=== PATIENT | female | born 1960 | race Caucasian/White ===

== ENCOUNTER 2023-12-30 16:38 | Emergency (ER) | payer OTHER, SELFPAY ==
[2023-12-30 16:45] VITALS: BP 144/84
[2023-12-30 17:07] LABS: % Basophils 0.6 % (0-2); % Eosinophils 1.1 % (0-6); % Immature Granulocytes 0.3 % (0-0.5); % Lymphocytes 29.7 % (20.5-51.1); % Monocytes 4.7 % (1.7-9.3); % Neutrophils 63.6 % (42.2-75.2); Absolute Basophils 0.1 10^3/uL (0-0.2); Absolute Eosinophils 0.1 10^3/uL (0-0.7); Absolute Monocytes 0.5 10^3/uL (0.1-0.6); Absolute Neutrophils 6.4 10^3/uL (1.4-6.5); Hematocrit 44.4 % (37.0-47.0); Hemoglobin 14.9 g/dL (12.0-16.0); Mean Corp Hgb Conc. 33.6 g/dL (33.0-37.0); Mean Corpuscular Hgb 26.9 pg (27.0-31.0); Mean Corpuscular Volume 80.3 fL (81.0-99.0); Mean Platelet Volume 9.7 fL (7.4-10.4); Nucleated Red Blood Cells % 0 %; Platelet Count 219 10^3/uL (130-400); Red Blood Cell Count 5.53 10^6/uL (4.20-5.40); Red Cell Dist. Width 14.8 % (11.5-14.5)
[2023-12-30 17:19] LABS: ALT (SGPT) 25 U/L (0-35); AST (SGOT) 29 U/L (14-36); Albumin 4.5 g/dl (3.5-5.0); Alkaline Phosphatase 84 U/L (38-126); Blood Urea Nitrogen 17 mg/dl (7-17); Calcium 9.9 mg/dl (8.4-10.2); Carbon Dioxide 21 mmol/L (22-30); Chloride 106 mmol/L (98-107); Glucose 192 mg/dl (70-99); Sodium 134 mmol/L (135-145); Total Bilirubin 0.4 mg/dl (0.2-1.3); Total Protein 7.1 g/dl (6.3-8.2); eGFR > 60.00
[2023-12-30 17:32] LABS: Troponin I < 0.012 ng/ml
--- NOTE | 2023-12-30 18:14 | ED.GENMED ---
History of Present Illness
General
Chief Complaint: Heart Rate Problem
Source: patient
Exam Limitations: none
Time Seen by Provider: 12/30/23 18:01
Travel History
Have you had any contact with someone who has COVID-19?: No
Do you have any symptoms of coronavirus? Fever > 100 degrees, chills, cough, shortness of breath, sore throat, loss of taste or smell, muscle aches, or headache?: No
History of Present Illness
History of Present Illness:
This is a 63 year old female that comes in with c/o atrial fib. States that she has kylie experiencing numbness in her hand, sweating and SOB. States that this started on Tuesday. States that she recently had a sinus infection and did two rounds of
antibiotics. States that she doesn't have chest pain but has pain in the mid back. States that she has a headache and feels dizzy. Denies any fever, chills, chest pain, abd pain, nausea, vomiting, diarrhea, urinary burning.
Past History
Past History
ED Past Medical History: CAD, Cancer (Skin), GERD, HTN, Hypercholesterolemia, NIDDM, [place], Psychiatric (Anxiety), Other (diverticulitis, kidney stone, Numbness in arms and legs. Sleep apnea, ) and Other
ED Past Surgical History: Cardiac (Stent X 1), Gynecological (Ovarian cyst removed), Urological and Other (polyp removed from Throat. )
Social History
Tobacco: Smoker
Alcohol: None
Drug: None
Personal:
Living: with family
Employment: Retired
Family History
Family History: Other (Noncontributory)
Review of Systems
Review of Systems
All Other Systems: ROS reviewed and negative except as documented in HPI and ROS
Constitutional: Reports other (Sweating); Denies fever or chills
EENT: Reports no symptoms
Respiratory: Reports trouble breathing; Denies cough
Cardiac: Denies chest pain
ABD/GI: Reports no symptoms; Denies abdominal pain, nausea, vomiting or diarrhea
: Reports no symptoms; Denies dysuria, frequency or urgency
Musculoskeletal: Reports back pain (Mid upper back pain)
Skin: Reports no symptoms
Neurological: Reports dizzy and headache
Psychiatric: Reports no symptoms
Phy Exam
General Physical Exam
General Presentation: no apparent distress
General age: appears stated age
General Skin: warm and dry
General Habitus: normal
General Mental: alert
General Hydration: dry mucous membranes
ENT Exam
ENT Exam: TM's normal, pharynx normal and neck supple
Eye Exam
Eye Exam: EOMI
Cardiovascular Exam
Cardiovascular Exam: no edema, no murmur, normal peripheral pulses and irregularly irregular
Pulmonary Exam
Pulmonary Exam: lungs clear, no respiratory distress, no rales, chest non tender, no crackles, no rhonchi, no wheezing and no cough
Gastrointestinal Exam
Gastrointestinal Exam: normal bowel sounds, non tender, soft, no organomegaly, no pulsatile mass, non distended and other (obese)
Musculoskeletal Exam
Musculoskeletal Exam: full ROM and no edema
Skin Exam
Skin Exam: normal color, warm/dry, no rash and no petechia
Psychiatric Exam
Psychiatric Exam: normal mood/affect
Scores
[id number] Score for Afib Stroke Risk
Age in Years (65=0, 65-74=1, >/=75=2): <65
Sex (Female=+1): Female
Congestive Heart Failure History (Yes=+1): No
Hypertension History (Yes=+1): Yes
Stroke/TIA/Thromboembolism History (Yes=+2): No
Vascular Disease History (Yes=+1): No
Diabetes Mellitus (Yes=+1): Yes
Score: 3
Anticoagulation Recommendations: Recommend anticoagulation (as validated in nonvalvular fib)
Course
Orders/Labs/Results
Orders:
Orders
12/30/23 16:39
EKG [Electrocardiogram (*1)] Urgent
Reason for Study: Chest Pain
EKG- Treatment ONCE
12/30/23 16:58
Complete Blood Count/With Diff Urgent
Comprehensive Metabolic Panel Urgent
TSH Reflex To Free T4 Urgent
Comment: ADD ON
Troponin I Urgent
12/30/23 18:13
0.9% Sodium Chloride 1000 ml [Nss] 1,000 ml IV BOLUS
Diltiazem 125 mg/125 ml Nss [Cardizem] 125 mg in 125 ml IV NOW
Initial dose in mg/hr, then titrate:: 5
Titrate to keep:: Heart rate 80-100 bpm
Titrate by mg/hr:: 5 mg/hr
Frequency of titrations (minutes):: 15
Maximum dose in mg/hr:: 15
Diltiazem HCl [Cardizem] 10 mg IV NOW STA
12/30/23 18:17
Add On- LAB Urgent
Tests Added?: TSH with reflex free T4
CR Chest - 2 Views Urgent
Comment:
Reason For Exam: SOB
12/30/23 18:18
EKG- Treatment ONCE
12/30/23 19:02
Troponin I Urgent
12/30/23 20:00
Electrocardiogram (*1) Urgent
Reason for Study: Atrial Fibrillation
Other Reason for Exam: Repeat with Troponin
Abnormal Lab Results
12/30/23
16:58
RBC 5.53 H 10^6/uL
(4.20-5.40)
MCV 80.3 L fL
(81.0-99.0)
MCH 26.9 L pg
(27.0-31.0)
RDW 14.8 H %
(11.5-14.5)
Sodium 134 L mmol/L
(135-145)
Carbon Dioxide 21 L mmol/L
(22-30)
Glucose 192 H mg/dl
(70-99)
12/30/23 16:58
12/30/23 16:58
Glucose nonfasting. troponin <0.012
Second Troponin <0.012,
Vital Signs
Initial and Last Documented VS:
Initial Vital Signs
Pulse Resp BP Pulse Ox
126 20 144/84 94
12/30/23 16:45 12/30/23 16:45 12/30/23 16:45 12/30/23 16:45
Last Documented Vital Signs
Pulse Resp BP Pulse Ox
96 15 144/84 96
12/30/23 19:30 12/30/23 19:30 12/30/23 16:45 12/30/23 19:30
MDM/Problems Addressed
Differential Diagnosis Includes:
New Onset atrial fib,
MDM/Problems Addressed:
This is a 63 year old female that comes in with c/o sweating, SOB and back pain. States that this started on Tuesday. State that she feels that she is in atrial fib after using her [employer] apple watch.
Will check labs. Give IV Cardizem to slow her rate, IV fluids and chest x-ray.
repeat ECG: Rate 97, Atrial fib, Normal axis. Right BBB, Negative for ischemia.
Back into see patient. Explained that her rate has improved on the repeat ECG but she was still in atrial fib. However, at this time she is now in NSR. Will get Repeat ECG. Message sent to Dr Teran Will place patient on Cardizem CD 120mg daily
and place on Eliquis 5mg BID. Patient has an appointment on Tuesday with Dr. Wetzel. Will discharge patient home.
Repeat ECG Rate 77, NSR, Normal axis. RBBB, Negative for ischemia. Patient is very happy. Explained that her Second Troponin was also normal and patient denies any further back pain.
Chronic conditions affecting care: DM
Acute Exacerbation and/or Progression of Chronic Illness:
NA
*Radiology
Radiology exam reviewed: radiology read reviewed (Chest- No acute cardiopulmonary process )
*Pulse Oximetry
Patient hypoxic: no
*EKG
Interpreted by ED Provider?: Yes
Interpretation: abnormal
Heart Rate: 134
Rate: tachycardiac
Rhythm: a-fib
[place]: normal axis
QRS Pattern: right bundle branch block
Ischemia: no ischemia (Checked by Dr. Goff)
*Condenser Tube Tender Interpretation
Rate: tachycardiac
Interpretation: abnormal
Heart Rate: 130
Rhythm: a-fib
*Critical Care Note
Total Time (30-74mins, 75-104mins- exclusive of procedures): 60 min
ED Attending Note
-
Portions of this chart may have been created with voice recognition software.� Occasional wrong word or��sound alike� substitutions may have occurred due to the inherent limitations of voice recognition software.
Discharge Plan
Departure
Patient Disposition: Home (Routine Discharge)
Date of Disposition: 12/30/23
Time of Disposition: 20:31
Patient with high blood pressure during this ER visit?: Yes
Condition: Good
Covid-19: Not Applicable
Discharge Problem:
New onset a-fib
Instructions: Atrial Fibrillation (DC), BLOOD PRESSURE
Prescriptions:
New
Eliquis 5 mg tablet
5 mg PO BID Qty: 60 0RF
diltiazem HCl [Cardizem CD] 120 mg capsule,extended release 24hr
120 mg PO DAILY Qty: 30 0RF
No Action
sertraline 100 MG tablet
200 mg PO DAILY 0RF
pantoprazole 40 MG tablet,delayed release (DR/EC)
40 mg PO DAILY Qty: 90 3RF
nitroglycerin 0.4 MG tablet, sublingual
0.4 mg sublingual [id number] PRN (Reason: chest pain) Qty: 25 2RF
aspirin 81 MG tablet,chewable
81 mg PO DAILY 0RF
rosuvastatin 20 MG tablet
20 mg PO QPM Qty: 90 3RF
trazodone 50 MG tablet
50 - 100 mg PO HSPRN PRN (Reason: sleep)
ferrous sulfate [FeroSul] 325 MG tablet
325 mg PO DAILY
losartan 25 MG tablet
25 mg PO DAILY
multivitamin with folic acid [Tab-A-Ameena] 1 TABLET tablet
1 tab PO DAILY
Jardiance 25 mg tablet
25 mg PO HS
Referrals:
Andreea Wetzel MD [Active] - 01/04/24
Amanda Rosenbaum CRNP [Family Provider] -
Activity Restrictions/Additional Instructions:
As discussed, your blood work shows that our blood sugar was 192. Your both Troponin <0.012. Your chest x-ray is normal. You have converted from the atrial fib back into a normal sinus Rhythm. Please follow up with the [employer] on Tuesday as
scheduled. You have also been started on Cardizem CD 120mg daily and Eliquis 5 mg BID. PLEASE DO NOT TAKE ANY OTHER ADVIL, ALEVE OR IBUPROFEN THIS WILL ALSO INCREASED THINNING OF THE BLOOD. IF YOU HAVE A FALL AND HIT YOUR HEAD YOU WILL NEED TO
RETURN TO THE EMERGENCY ROOM FOR A CT OF THE HEAD. IF YOU HAVE A RAPID HEART RATE AGAIN, CHEST PAIN OR BACK PAIN OR YOU HAVE ANY OTHER CONCERNS PLEASE RETURN TO THE EMERGENCY ROOM.
Interventions
Interventions:
*Risk Screen - Suicide Last Done: 12/30/23 18:24
*General Assessment Last Done: 12/30/23 18:24
*Neglect/Abuse Screening Last Done: 12/30/23 18:24
ED- Fall Risk Assessment Last Done: 12/30/23 18:28
*ED COVID-19 Vaccine History Last Done: 12/30/23 18:24
ED- Cardiac Assessment Last Done: 12/30/23 18:28
ED- Pulmonary Assessment Last Done: 12/30/23 18:28
Discharge Date and Time
Print Language: SINHALA
[2023-12-30 18:21] VITALS: BMI 46.5
[2023-12-30] MEDS: CARDIZEM 10 MG IV (18:33)
[2023-12-30] MEDS: NSS 1000 IV (18:33)
[2023-12-30] MEDS: CARDIZEM 125 IV (18:33)
[2023-12-30 19:29] LABS: TSH Reflex To Free T4 0.53 uIU/ml (0.47-4.68)
[2023-12-30 19:32] LABS: Troponin I < 0.012 ng/ml
[2023-12-30] MEDS: ELIQUIS 5 MG PO (21:17)
[2023-12-30] MEDS: CARDIZEM CD 120 MG PO (21:18)
== END 2023-12-30 21:25 | disposition home or self-care (01) ==
LOC: EMR 16:38
PROVIDERS: Clinical Nurse Specialist Family Health; EMERGENCY PHYSICIAN Emergency Medicine; FAMILY PHYSICIAN Nurse Practitioner
DX: I48.91 Unspecified atrial fibrillation (principal); R06.02 Shortness of breath; M54.9 Dorsalgia, unspecified; R42 Dizziness and giddiness; R51.9 Headache, unspecified; M54.6 Pain in thoracic spine; R61 Generalized hyperhidrosis; R20.0 Anesthesia of skin; I45.10 Unspecified right bundle-branch block; E11.9 Type 2 diabetes mellitus without complications; E78.00 Pure hypercholesterolemia, unspecified; F41.9 Anxiety disorder, unspecified; K21.9 Gastro-esophageal reflux disease without esophagitis; I10 Essential (primary) hypertension; G47.30 Sleep apnea, unspecified; I25.10 Atherosclerotic heart disease of native coronary artery without angina pectoris; K57.92 Diverticulitis of intestine, part unspecified, without perforation or abscess without bleeding; F17.200 Nicotine dependence, unspecified, uncomplicated; Z95.5 Presence of coronary angioplasty implant and graft; Z85.828 Personal history of other malignant neoplasm of skin; Z87.442 Personal history of urinary calculi; Z88.0 Allergy status to penicillin; Z88.8 Allergy status to other drugs, medicaments and biological substances; Z91.040 Latex allergy status
CPT/HCPCS: 99291; 96374; 96361; 71046; 80053; 84443; 84484; 85025; 93005

== ENCOUNTER → 2024-01-11 13:13 | Outpatient (REF) | payer OTHER, SELFPAY | LOC: WDC 13:13 | PROVIDERS: ATTENDING PHYSICIAN Nurse Practitioner | DX: Z12.31 Encounter for screening mammogram for malignant neoplasm of breast (principal) | CPT/HCPCS: 77063; 77067 ==

== ENCOUNTER → 2024-03-26 13:53 | Outpatient (REF) | payer OTHER, SELFPAY | LOC: RCS 13:53 | PROVIDERS: ATTENDING PHYSICIAN Internal Medicine Cardiovascular Disease; FAMILY PHYSICIAN Nurse Practitioner | DX: I48.91 Unspecified atrial fibrillation (principal) | CPT/HCPCS: 93306 ==

== ENCOUNTER → 2024-07-10 15:21 | Outpatient (REF) | payer OTHER, SELFPAY | LOC: RAD 15:21 | PROVIDERS: ATTENDING PHYSICIAN Nurse Practitioner | DX: U07.1 COVID-19 (principal) | CPT/HCPCS: 71046 ==

== ENCOUNTER → 2024-12-21 12:46 | Outpatient (REF) | payer OTHER, SELFPAY | LOC: HWRAD 12:46 | PROVIDERS: ATTENDING PHYSICIAN Nurse Practitioner | DX: J06.9 Acute upper respiratory infection, unspecified (principal) | CPT/HCPCS: 71046 ==

== ENCOUNTER → 2025-01-29 13:52 | Outpatient (REF) | payer OTHER, SELFPAY | LOC: HWWDC 13:52 | PROVIDERS: ATTENDING PHYSICIAN Nurse Practitioner | DX: Z12.31 Encounter for screening mammogram for malignant neoplasm of breast (principal); Z87.891 Personal history of nicotine dependence | CPT/HCPCS: 71271; 77063; 77067 ==

== ENCOUNTER → 2025-06-20 13:59 | Outpatient (REF) | payer OTHER, SELFPAY | LOC: HWRAD 13:59 | PROVIDERS: ATTENDING PHYSICIAN Nurse Practitioner | DX: I25.10 Atherosclerotic heart disease of native coronary artery without angina pectoris (principal); R31.9 Hematuria, unspecified | CPT/HCPCS: 76770 ==

== ENCOUNTER → 2025-07-12 12:23 | Outpatient (REF) | payer OTHER, SELFPAY | LOC: HWRAD 12:23 | PROVIDERS: ATTENDING PHYSICIAN Nurse Practitioner | DX: M70.61 Trochanteric bursitis, right hip (principal); M70.62 Trochanteric bursitis, left hip; M54.16 Radiculopathy, lumbar region | CPT/HCPCS: 72100; 73523 ==